=== PATIENT | male | born 1960 | race Caucasian/White ===

== ENCOUNTER 2024-08-10 15:22 | Emergency (ER) | payer MEDICARE ==
[~2024-08-10] VITALS: Ht 162.6 cm; Wt 52.2 kg
[2024-08-10 17:08] LABS: BASOPHILS # (AUTO) 0.05 K/uL (0.00-0.20); BASOPHILS % (AUTO) 0.8 % (0.0-5.0); EOSINOPHILS # (AUTO) 0.04 K/uL (0.00-0.70); EOSINOPHILS % (AUTO) 0.7 % (0.0-8.0); HEMATOCRIT 45.2 % (42-54); IMMATURE GRANULOCYTE ABSOLUTE 0.02 K/uL (0-1); LYMPHOCYTES # (AUTO) 1.4 K/uL (1.0-4.8); LYMPHOCYTES % (AUTO) 22.9 % (21.0-51.0); MEAN CORPUSCULAR HEMOGLOBIN 29.6 pg (27.0-33.0); MEAN CORPUSCULAR HGB CONC 32.3 g/dL (32.0-36.0); MEAN CORPUSCULAR VOLUME 91.7 fL (79-99); MONOCYTES # (AUTO) 1.3 K/uL (0.1-1.0); MONOCYTES % (AUTO) 22.2 % (3.0-13.0); NEUTROPHILS # (AUTO) 3.2 K/uL (1.8-7.7); NEUTROPHILS % (AUTO) 53.1 % (40.0-77.0); PLATELET COUNT (AUTO) 252 K/uL (130-400); RED BLOOD CELL COUNT(AUTO) 4.93 MIL/uL (4.50-6.20); RED CELL DISTRIBUTION WIDTH 13.6 % (11.0-15.5); WHITE BLOOD COUNT (AUTO) 5.9 K/uL (4.8-10.8)
[2024-08-10 17:23] LABS: POTASSIUM 3.9 mmol/L (3.5-5.1)
[2024-08-10 17:27] LABS: COVID19 (SARS ANTIGEN RAPID) PRESUMPTIVE NEGATIVE (NEGATIVE); INFLUENZA TYPE A Negative For Type A (NEGATIVE); INFLUENZA TYPE B Negative For Type B (NEGATIVE)
[2024-08-10 17:32] LABS: B-TYPE NATRIURETIC PEPTIDE 18 pg/mL (0-100)
--- NOTE | 2024-08-10 18:23 | HMCIMG ---
PORTABLE CHEST RADIOGRAPH INDICATION: SOB COMPARISON: None FINDINGS: Heart size is normal. The pulmonary vascularity and keshav appear normal. No abnormal pulmonary parenchymal opacity or consolidation identified. No significant pleural effusion noted. No pneumothorax detected. Mild to moderate thoracic dextroscoliosis. IMPRESSION: No radiographic evidence for any acute cardiopulmonary process.
[2024-08-10] MEDS ORDERED: AMOX500C2 PO (18:38)
--- NOTE | 2024-08-10 18:38 | ERN ---
General Chief Complaint: Shortness of Breath Stated Complaint: DOUBLE PNEUMONIA Time Seen by MD: 15:25 Time Seen by Midlevel: 15:25 Source: patient History of Present Illness Initial Comments 63-year-old male presents to the emergency department due to pneumonia. Per family member patient was seen at an urgent care and diagnosed with bilateral pneumonia. Sister reports patient initiated with cough, shortness of breath onset three days denies any abdominal pain nausea vomiting or further associated symptoms. PMHx cerebral palsy, scoliosis, osteoporosis Allergies: Coded Allergies: ciprofloxacin (Unverified Allergy, Intermediate, 08/10/24) Home Meds Active Scripts Amoxicillin (Amoxicillin) 400 Mg/5 Ml Susp.recon, 6.25 MG PO BID for 10 Days, #125 ML Prov:FÉLIX ROWLAND 08/10/24 Discontinued Scripts Amoxicillin (Amoxicillin) 500 Mg Capsule, 500 MG PO BID for 10 Days, #20 CAP Prov:FÉLIX ROWLAND 08/10/24 Past Medical History Past Medical History: Kidney Stone, UTI Medical History Other: CEREBRAL PALSY, SCOLIOSIS, OSTEOPOROSIS, CEREBRAL PALSY Past Surgical History: Other Surgical History Other: HERNIA, RIGHT HIP AND KIDNEY STONES ROS Dictation Constitutional: Negative for fever,chills, and weight loss Eyes: Negative for injury, pain,redness, and discharge ENT: Positive for congestion Negative for injury,pain or swelling Cardiovascular: Negative for chest pain, palpitations, and edema Respiratory: Positive for cough, SOB Negative for wheezing Abdomen/GI: Negative for abdominal pain, nausea, vomiting, diarrhea, and constipation Back: Negative for injury and pain : Negative for painful urination, bleeding or discharge MS/Extremity: Negative for injury and deformity Skin: Negative for rash, and discoloration Neuro: Negative for headache, weakness, numbness, tingling, and seizure Psych: Negative for suicide ideation, homicidal ideation, and hallucinations Physical Exam Physical Exam Dictation General: awake, alert, no acute distress Head/Face: Normocephalic, atraumatic Eyes: PERRL, EOMI, normal conjunctiva ENT: oral cavity clear, oral mucosa moist Neck: Normal range of motion, supple Cardiovascular: RRR, normal S1/S2 Respiratory: CTAB, no respiratory distress, no rales or wheezes Abdomen: Soft, non-tender, non-distended, no guarding or rebound. Skin: Warm, dry, normal turgor, no rash MS/Extremity: Pulses equal, no cyanosis, neurovascular intact, FROM Neuro: COAx4, GCS 15, at baseline, wheelchair-bound due to cerebral palsy Psych: Normal behavior, mood, and affect normal Results Laboratory and Microbiology Lab and Micro Result Laboratory Tests Test 08/10/24 16:45 08/10/24 16:57 Influenza Type A Antigen Negative For Type A Influenza Type B Antigen Negative For Type B SARS-CoV-2 Antigen (Rapid) PRESUMPTIVE NEGATIVE Group A Streptococcus Rapid POSITIVE (NEGATIVE) *A White Blood Count 5.9 K/uL (4.8-10.8) Red Blood Count 4.93 MIL/uL (4.50-6.20) Hemoglobin 14.6 g/dL (14.0-18.0) Hematocrit 45.2 % (42-54) Mean Corpuscular Volume 91.7 fL (79-99) Mean Corpuscular Hemoglobin 29.6 pg (27.0-33.0) Mean Corpuscular Hemoglobin Concent 32.3 g/dL (32.0-36.0) Red Cell Distribution Width 13.6 % (11.0-15.5) Platelet Count 252 K/uL (130-400) Mean Platelet Volume 8.5 fL (7.5-10.5) Immature Granulocyte % (Auto) 0.3 % (0-1) Neutrophils (%) (Auto) 53.1 % (40.0-77.0) Lymphocytes (%) (Auto) 22.9 % (21.0-51.0) Monocytes (%) (Auto) 22.2 % (3.0-13.0) H Eosinophils (%) (Auto) 0.7 % (0.0-8.0) Basophils (%) (Auto) 0.8 % (0.0-5.0) Neutrophils # (Auto) 3.2 K/uL (1.8-7.7) Lymphocytes # (Auto) 1.4 K/uL (1.0-4.8) Monocytes # (Auto) 1.3 K/uL (0.1-1.0) H Eosinophils # (Auto) 0.04 K/uL (0.00-0.70) Basophils # (Auto) 0.05 K/uL (0.00-0.20) Absolute Immature Granulocyte (auto 0.02 K/uL (0-1) Nucleated Red Blood Cells 0.0 % (0.0-0.19) White Cell Morphology Comment See comments Sodium Level 137 mmol/L (136-145) Potassium Level 3.9 mmol/L (3.5-5.1) Chloride Level 102 mmol/L (101-111) Carbon Dioxide Level 29 mmol/L (21-32) Blood Urea Nitrogen 15 mg/dL (7-18) Creatinine 1.0 mg/dL (0.5-1.3) Glomerular Filtration Rate Calc 86 mL/min (>90) Random Glucose 91 mg/dL (70-105) Total Calcium 8.9 mg/dL (8.5-10.1) B-Type Natriuretic Peptide 18 pg/mL (0-100) Labs Reviewed?: Yes EKG/XRAY/US/CT/MRI X-RAY Comment REASON: SOB ORDERING PHYSICIAN: FÉLIX ROWLAND PROCEDURE: CXR1VW - CHEST 1VW PORTABLE CHEST RADIOGRAPH INDICATION: SOB COMPARISON: None FINDINGS: Heart size is normal. The pulmonary vascularity and keshav appear normal. No abnormal pulmonary parenchymal opacity or consolidation identified. No significant pleural effusion noted. No pneumothorax detected. Mild to moderate thoracic dextroscoliosis. IMPRESSION: No radiographic evidence for any acute cardiopulmonary process. DICTATED BY: JOSEPH CORRAL MD DATE: 08/10/241819 MDM MDM: Differential diagnosis: Influenza, pneumonia, strep, SARs Rationale: 63-year-old male presents to the emergency department due to pneumonia. Per family member patient was seen at an urgent care and diagnosed with bilateral pneumonia. Sister reports patient initiated with cough, shortness of breath onset three days denies any abdominal pain nausea vomiting or further associated symptoms. PMHx cerebral palsy, scoliosis, osteoporosis Labs obtained are nonspecific. Influenza and SARs negative. Strep A positive. Chest x-ray obtained indicates no pneumonia, no acute abnormalities. Per vital signs and physical examination patient has no acute distress, 98 % O2 on room air, nonlabored breathing, nasal congestion noted but no crackles auscultated. Family member was educated on findings and diagnosis. Rocephin administered in the ED and antibiotics prescribed for outpatient treatment. Advised to follow up with PCP. Return to the emergency department if any worsening symptoms. Family member verbalized understanding. Patient stable for discharge. There are no social concerns with this patient. I independently interpreted the test that were performed, results were reviewed by me and considered findings on radiology if ordered. Medical management and examination interpretation discussions were had by me with other qualified healthcare professionals as indicated for the patient's care. ED Course Orders Procedure Category Date Status Time Cbc With Differential LAB 08/10/24 Complete 16:16 Basic Metabolic Panel LAB 08/10/24 Complete 16:16 B-Type Natriuretic LAB 08/10/24 Complete Peptide 16:16 Covid19 (Sars Antigen LAB 08/10/24 Complete Rapid) 16:16 Influenza Type A & B, LAB 08/10/24 Complete Rapid 16:16 Chest 1vw RAD 08/10/24 Resulted 16:16 Rapid (Group A Strep) LAB 08/10/24 Complete 17:30 Ceftriaxone 1g Vial PHA 08/10/24 Complete (Rocephine 1g Inj) 19:00 Current Medications Medications (Trade) Dose Ordered Sig/Kalin Route PRN Reason Start Time Stop Time Status Last Admin Dose Admin Ceftriaxone Sodium (ROCEphine 1G INJ) 1 gm ONCE ONCE IVPB 08/10/24 19:00 08/10/24 19:01 DC 08/10/24 19:16 Vital Signs Date Time Temp Pulse Resp B/P (MAP) Pulse Ox O2 Delivery O2 Flow Rate FiO2 08/10/24 19:53 99.0 101 18 168/92 98 Room Air* 0 21 08/10/24 16:36 99.7 108 20 174/111 98 Room Air 0 DX & DISP Disposition: Discharge Departure Impression: Primary Impression: Strep pharyngitis Condition: Stable Scripts Amoxicillin (Amoxicillin) 400 Mg/5 Ml Susp.recon 6.25 MG PO BID for 10 Days, #125 ML Prov: FÉLIX ROWLAND 08/10/24 Additional Instructions: Discharge home. Rest. Follow up with primary care in 24 hours. Return to the ER for any acute changes or worsening symptoms. If any medications were prescribed take as directed. Okay to continue home medications unless otherwise discussed during your visit in the emergency room today. Patient was also advised to follow-up with primary care physician in 1 to 2 days for continued monitoring. Referrals: SELF,REFERRAL (PCP) I performed the substantive portion of the visit. I have reviewed and personally made and approve the management plan that is documented in the notes by myself or the BERTHA. I acknowledge full responsibility for the patient's management plan. FÉLIX ROWLAND Aug 10, 2024 18:38 AMY CARLIN MD Aug 11, 2024 12:06
--- NOTE | 2024-08-10 18:48 | NUR ---
ASSUMED CARE AT THIS TIME PT WAS MOVED FROM LOBBY INTO FAST TRACK
[2024-08-10] MEDS: cefTRIAXone 1G VIAL IVPB ONE (19:16)
[2024-08-10] MEDS ORDERED: AMOX400S5 PO (19:37)
[2024-08-10 19:53] VITALS: BP 168/92; PULSE 101; RESP 18; TEMP 99; O2SAT 98
--- NOTE | 2024-08-10 19:56 | NUR ---
INSTRUCTIONS PROVIDED TO FMAILY MEMBER ACCOMPANING PATIENT
== END 2024-08-10 19:57 | disposition home or self-care (01) ==
LOC: EDH 15:22
DX: J02.0 Streptococcal pharyngitis (principal); Z88.1 Allergy status to other antibiotic agents; Z20.822 Contact with and (suspected) exposure to COVID-19
CPT/HCPCS: 99284; 96374; 71045; 87426; 80048; 83880; 85025; 87880; 87804 ×2; 36415; J0696